=== PATIENT | female | born 1980 ===

== ENCOUNTER → 2024-02-07 08:07 | Outpatient (REF) | payer OTHER, SELFPAY ==
[2024-02-07 08:49] LABS: % Eosinophils 4.2 % (0-6); % Immature Granulocytes 0.6 % (0-0.5); % Lymphocytes 28.9 % (20.5-51.1); % Monocytes 7.7 % (1.7-9.3); % Neutrophils 57.6 % (42.2-75.2); Absolute Basophils 0.1 10^3/uL (0-0.2); Absolute Eosinophils 0.2 10^3/uL (0-0.7); Absolute Lymphocytes 1.5 10^3/uL (1.2-3.4); Absolute Monocytes 0.4 10^3/uL (0.1-0.6); Absolute Neutrophils 2.9 10^3/uL (1.4-6.5); Hematocrit 29.7 % (37.0-47.0); Hemoglobin 8.3 g/dL (12.0-16.0); Mean Corp Hgb Conc. 27.9 g/dL (33.0-37.0); Mean Corpuscular Volume 64.4 fL (81.0-99.0); Mean Platelet Volume 9.3 fL (7.4-10.4); Nucleated Red Blood Cells % 0 %; Platelet Count 327 10^3/uL (130-400); Red Blood Cell Count 4.61 10^6/uL (4.20-5.40); Red Cell Dist. Width 18.3 % (11.5-14.5); White Blood Cell Count 5.1 10^3/uL (4.8-10.8)
[2024-02-07 09:30] LABS: ALT (SGPT) 12 U/L (0-35); AST (SGOT) 21 U/L (14-36); Albumin 4.1 g/dl (3.5-5.0); Alkaline Phosphatase 62 U/L (38-126); Blood Urea Nitrogen 12 mg/dl (7-17); Carbon Dioxide 23 mmol/L (22-30); Chloride 110 mmol/L (98-107); Glucose 91 mg/dl (70-99); HDL Cholesterol 46 mg/dl; LDL Cholesterol, Calculated 88 mg/dl; Potassium 4.7 mmol/L (3.5-5.1); Sodium 139 mmol/L (135-145); Total Bilirubin 0.4 mg/dl (0.2-1.3); Total Cholesterol 150 mg/dl (50-199); Total Protein 6.8 g/dl (6.3-8.2); Triglyceride 81 mg/dl (10-149); Very Low Density Lipoprotein 16 mg/dl (0-30); eGFR > 60.00
[2024-02-07 09:52] LABS: TSH Reflex To Free T4 2.43 uIU/ml (0.47-4.68)
[2024-02-07 10:42] LABS: Anisocytosis 1+; Hypochromasia 2+; Normal RBC Morphology No
[2024-02-07 10:44] LABS: Ovalocytes 2+
[2024-02-07 11:46] LABS: Glycohemoglobin (HgbA1c) 5.4 % (4.0-5.6)
== END ==
LOC: WDC 08:07
PROVIDERS: ATTENDING PHYSICIAN Nurse Practitioner Acute Care
DX: R92.8 Other abnormal and inconclusive findings on diagnostic imaging of breast (principal); N63.20 Unspecified lump in the left breast, unspecified quadrant
CPT/HCPCS: 36415; 76642; 77062; 77066; 80053; 80061; 82306; 83036; 84443; 85025

== ENCOUNTER → 2024-02-19 10:13 | Outpatient (REF) | payer OTHER, SELFPAY ==
[2024-02-19 11:55] LABS: Hematocrit 29.5 % (37.0-47.0); Hemoglobin 8.6 g/dL (12.0-16.0); Mean Corp Hgb Conc. 29.2 g/dL (33.0-37.0); Mean Corpuscular Hgb 19.4 pg (27.0-31.0); Mean Corpuscular Volume 66.4 fL (81.0-99.0); Mean Platelet Volume 9.9 fL (7.4-10.4); Platelet Count 375 10^3/uL (130-400); Red Blood Cell Count 4.44 10^6/uL (4.20-5.40); Red Cell Dist. Width 21.7 % (11.5-14.5); White Blood Cell Count 5.2 10^3/uL (4.8-10.8)
== END ==
LOC: CLINIC 10:13
PROVIDERS: ATTENDING PHYSICIAN Obstetrics & Gynecology Gynecology
DX: D64.9 Anemia, unspecified (principal)
CPT/HCPCS: 36415; 85027

== ENCOUNTER → 2024-03-27 07:19 | Outpatient (REF) | payer OTHER, SELFPAY | LOC: MRI 3T 07:19 | PROVIDERS: ATTENDING PHYSICIAN Nurse Practitioner Acute Care; FAMILY PHYSICIAN Nurse Practitioner Adult Health | DX: D21.9 Benign neoplasm of connective and other soft tissue, unspecified (principal); D64.9 Anemia, unspecified; N70.11 Chronic salpingitis | CPT/HCPCS: 72197; A9575 ==

== ENCOUNTER → 2024-04-08 10:05 | Outpatient (REF) | payer OTHER, SELFPAY ==
[2024-04-08 11:41] LABS: % Basophils 1.1 % (0-2); % Eosinophils 3.5 % (0-6); % Immature Granulocytes 0.5 % (0-0.5); % Lymphocytes 35.7 % (20.5-51.1); % Monocytes 7.6 % (1.7-9.3); % Neutrophils 51.6 % (42.2-75.2); Absolute Eosinophils 0.1 10^3/uL (0-0.7); Absolute Lymphocytes 1.3 10^3/uL (1.2-3.4); Absolute Monocytes 0.3 10^3/uL (0.1-0.6); Absolute Neutrophils 1.9 10^3/uL (1.4-6.5); Hematocrit 29.1 % (37.0-47.0); Hemoglobin 8.9 g/dL (12.0-16.0); Mean Corp Hgb Conc. 30.6 g/dL (33.0-37.0); Mean Corpuscular Volume 68.6 fL (81.0-99.0); Nucleated Red Blood Cells % 0 %; Platelet Count 356 10^3/uL (130-400); Red Blood Cell Count 4.24 10^6/uL (4.20-5.40); Red Cell Dist. Width 23.4 % (11.5-14.5); White Blood Cell Count 3.7 10^3/uL (4.8-10.8)
[2024-04-08 13:25] LABS: Anisocytosis 2+; Hypochromasia 1+; Normal RBC Morphology No
[2024-04-08 13:26] LABS: Ovalocytes Slight; Polychromasia Slight
== END ==
LOC: REG 10:05
PROVIDERS: ATTENDING PHYSICIAN Obstetrics & Gynecology Gynecology
DX: D64.9 Anemia, unspecified (principal); N92.0 Excessive and frequent menstruation with regular cycle
CPT/HCPCS: 88305; 36415; 85025

== ENCOUNTER 2024-04-24 06:28 | Day surgery (SDC) | payer OTHER, SELFPAY ==
[2024-04-24] VITALS (8 sets, daily range): BP systolic 102–123; BP diastolic 72–85; BMI 28.6
[2024-04-24 09:16] LABS: HCG, Urine Qualitative Screen Negative
[2024-04-24] MEDS: NORMOSOL-R/PLASMALYTE-A 1000 IV (09:26)
[2024-04-24] MEDS: TYLENOL 650 MG PO (14:04)
== END 2024-04-24 14:35 | disposition home or self-care (01) ==
LOC: SDS 06:28
PROVIDERS: ATTENDING PHYSICIAN Obstetrics & Gynecology Gynecology
DX: D25.0 Submucous leiomyoma of uterus (principal); N92.0 Excessive and frequent menstruation with regular cycle; D64.9 Anemia, unspecified
CPT/HCPCS: 58558; 88305; 81025; 86850; 86900; 86901

== ENCOUNTER → 2024-07-17 10:23 | Outpatient (REF) | payer OTHER, SELFPAY ==
[2024-07-17 12:29] LABS: Hemoglobin 10.4 g/dL (12.0-16.0); Mean Corp Hgb Conc. 29.7 g/dL (33.0-37.0); Mean Corpuscular Volume 70.6 fL (81.0-99.0); Platelet Count 291 10^3/uL (130-400); Red Blood Cell Count 4.96 10^6/uL (4.20-5.40); Red Cell Dist. Width 18.9 % (11.5-14.5); White Blood Cell Count 4.9 10^3/uL (4.8-10.8)
== END ==
LOC: CLINIC 10:23
PROVIDERS: ATTENDING PHYSICIAN Obstetrics & Gynecology Gynecology
DX: D50.0 Iron deficiency anemia secondary to blood loss (chronic) (principal)
CPT/HCPCS: 36415; 85027

== ENCOUNTER → 2024-08-21 09:34 | Outpatient (REF) | payer OTHER, SELFPAY ==
[2024-08-21 10:14] LABS: % Basophils 0.5 % (0-2); % Eosinophils 4.4 % (0-6); % Immature Granulocytes 0.5 % (0-0.5); % Lymphocytes 32.1 % (20.5-51.1); % Monocytes 7.4 % (1.7-9.3); % Neutrophils 55.1 % (42.2-75.2); Absolute Eosinophils 0.2 10^3/uL (0-0.7); Absolute Lymphocytes 1.3 10^3/uL (1.2-3.4); Absolute Monocytes 0.3 10^3/uL (0.1-0.6); Absolute Neutrophils 2.2 10^3/uL (1.4-6.5); Hematocrit 31.9 % (37.0-47.0); Hemoglobin 9.6 g/dL (12.0-16.0); Mean Corp Hgb Conc. 30.1 g/dL (33.0-37.0); Mean Corpuscular Hgb 20.8 pg (27.0-31.0); Mean Corpuscular Volume 69.2 fL (81.0-99.0); Mean Platelet Volume 10.2 fL (7.4-10.4); Nucleated Red Blood Cells % 0 %; Platelet Count 310 10^3/uL (130-400); Red Blood Cell Count 4.61 10^6/uL (4.20-5.40); Red Cell Dist. Width 18.1 % (11.5-14.5); White Blood Cell Count 4.1 10^3/uL (4.8-10.8)
== END ==
LOC: CLINIC 09:34
PROVIDERS: ATTENDING PHYSICIAN Obstetrics & Gynecology Gynecology
DX: D50.0 Iron deficiency anemia secondary to blood loss (chronic) (principal); N92.0 Excessive and frequent menstruation with regular cycle
CPT/HCPCS: 36415; 85025

== ENCOUNTER → 2024-09-23 09:18 | Outpatient (REF) | payer OTHER, SELFPAY ==
[2024-09-23 10:30] LABS: Hematocrit 32.4 % (37.0-47.0); Hemoglobin 9.7 g/dL (12.0-16.0); Mean Corp Hgb Conc. 29.9 g/dL (33.0-37.0); Mean Corpuscular Hgb 20.8 pg (27.0-31.0); Mean Corpuscular Volume 69.5 fL (81.0-99.0); Platelet Count 302 10^3/uL (130-400); Red Blood Cell Count 4.66 10^6/uL (4.20-5.40)
== END ==
LOC: CLINIC 09:18
PROVIDERS: ATTENDING PHYSICIAN Obstetrics & Gynecology Gynecology; FAMILY PHYSICIAN Nurse Practitioner Adult Health
DX: D50.0 Iron deficiency anemia secondary to blood loss (chronic) (principal); N92.0 Excessive and frequent menstruation with regular cycle
CPT/HCPCS: 36415; 85027

== ENCOUNTER → 2024-11-06 08:25 | Outpatient (REF) | payer OTHER, SELFPAY ==
[2024-11-06 09:58] LABS: Hemoglobin 11.8 g/dL (12.0-16.0); Mean Corp Hgb Conc. 31.1 g/dL (33.0-37.0); Mean Corpuscular Hgb 23.1 pg (27.0-31.0); Mean Corpuscular Volume 74.5 fL (81.0-99.0); Mean Platelet Volume 10.2 fL (7.4-10.4); Platelet Count 250 10^3/uL (130-400); Red Cell Dist. Width 24.1 % (11.5-14.5); White Blood Cell Count 4.3 10^3/uL (4.8-10.8)
== END ==
LOC: CLINIC 08:25
PROVIDERS: ATTENDING PHYSICIAN Nurse Practitioner Adult Health
DX: D50.0 Iron deficiency anemia secondary to blood loss (chronic) (principal); N92.0 Excessive and frequent menstruation with regular cycle
CPT/HCPCS: 36415; 85027

== ENCOUNTER → 2025-04-23 07:53 | Outpatient (REF) | payer OTHER, SELFPAY ==
[2025-04-23 08:40] LABS: Hematocrit 37.0 % (37.0-47.0); Hemoglobin 11.7 g/dL (12.0-16.0); Mean Corp Hgb Conc. 31.6 g/dL (33.0-37.0); Mean Corpuscular Volume 81.5 fL (81.0-99.0); Platelet Count 258 10^3/uL (130-400); Red Cell Dist. Width 18.2 % (11.5-14.5)
[2025-04-23 09:09] LABS: ALT (SGPT) 16 U/L (0-35); AST (SGOT) 20 U/L (14-36); Albumin 4.1 g/dl (3.5-5.0); Alkaline Phosphatase 69 U/L (38-126); Blood Urea Nitrogen 17 mg/dl (7-17); Calcium 9.3 mg/dl (8.4-10.2); Carbon Dioxide 24 mmol/L (22-30); Chloride 110 mmol/L (98-107); Glucose 94 mg/dl (70-99); HDL Cholesterol 39 mg/dl; LDL Cholesterol, Calculated 82 mg/dl; Potassium 5.2 mmol/L (3.5-5.1); Sodium 140 mmol/L (135-145); Total Protein 6.9 g/dl (6.3-8.2); Very Low Density Lipoprotein 40 mg/dl (0-30); eGFR > 60.00
[2025-04-23 09:24] LABS: Vitamin D, 25-OH*** 42.1 ng/mL (30-80)
[2025-04-23 09:28] LABS: Glycohemoglobin (HgbA1c) 5.2 % (4.0-5.6)
[2025-04-23 09:56] LABS: Vitamin B12 > 1000 pg/ml (239-931)
== END ==
LOC: REG 07:53
PROVIDERS: ATTENDING PHYSICIAN Nurse Practitioner Adult Health
DX: D50.0 Iron deficiency anemia secondary to blood loss (chronic) (principal); Z00.00 Encounter for general adult medical examination without abnormal findings; Z83.3 Family history of diabetes mellitus
CPT/HCPCS: 36415; 80053; 80061; 82306; 82607; 83036; 85027